=== PATIENT | female | born 1955 | race Caucasian/White ===

== ENCOUNTER 2020-04-22 20:03 | Emergency (ER) | payer MEDICARE, OTHER, SELFPAY ==
[2020-04-22 20:10] VITALS: BP 160/94; PULSE 89; RESP 18; TEMP 38.7; O2SAT 98; BMI 20.5
--- NOTE | 2020-04-22 20:30 | XRR_ITS ---
PROCEDURE INFORMATION: Exam: XR Chest, 1 View Exam date and time: 04/22/2020 9:21 PM Age: 65 years old Clinical indication: Fever; Prior surgery; Surgery type: Breast TECHNIQUE: Imaging protocol: XR of the chest Views: 1 view. COMPARISON: No relevant prior studies available. FINDINGS: Lungs: Unremarkable. No consolidation. Pleural space: Unremarkable. No pleural effusion. No pneumothorax. Heart/Mediastinum: Unremarkable. No cardiomegaly. Bones/joints: Lower thoracic curvature left concavity. Osteopenia. Soft tissues: Numerous surgical clips within the soft tissues over the chest bilaterally. XR/XR chest 1V portable [id number] IMPRESSION: No acute cardiopulmonary process.
--- NOTE | 2020-04-22 20:31 | W.ED.FEVER ---
HPI - Fever General: Chief Complaint: Fever Stated Complaint: fever/fatigue; back pain Time Seen by Provider: 04/22/20 20:21 Source: patient Mode of arrival: ambulatory Limitations: no limitations History of Present Illness: HPI Narrative: 65-year-old female who states she has had a fever over the last 2 days. States it is been up to 102. She states she was at an auction last week. She denies any cough. States she has had a headache but is from her TMJ and feels like her TMJ. She also has hip pain that is chronic in nature. Denies any dysuria. Denies any cough. Associated symptoms: Deny abdominal pain, chest pain, diarrhea, dysuria, headache(s), nausea or vomiting Review of Systems Const: Reports: fever(s) Eyes: Denies: blurry vision or eye discomfort ENMT: Denies: throat pain or dental pain Card: Denies: chest pain Resp: Denies: dyspnea GI: Denies: abdominal pain, nausea, vomiting or diarrhea : Denies: dysuria Musc: Denies: neck pain or back pain Skin/Breast: Denies: rash Neuro: Denies: headache(s) Psych: Denies: depression Srinivas/Lymph: Denies: easy bruising All/Imm: Denies: urticaria Physical Exam Const: COMMON NORMALS: no acute distress, patient oriented x3 and healthy appearing HENMT: COMMON NORMALS: normocephalic and atraumatic HEAD & SCALP: normocephalic and atraumatic Eye: COMMON NORMALS: Equal, round and reactive pupils present and EOMs intact bilaterally PUPIL: Yes Equal, round and reactive pupils present Neck/C-Spine: COMMON NORMALS: full ROM and supple Chest: COMMONS NORMALS: normal inspection of the chest and normal palpation of entire chest wall Resp: COMMON NORMALS: normal respiratory effort, No retractions, No use of accessory muscles and clear to auscultation bilaterally AUSCULTATION: clear to auscultation bilaterally Cardio: COMMON NORMALS: regular rate, regular rhythm and No murmurs present (Cardio) RATE: regular rate RHYTHM: regular rhythm GI: COMMON NORMALS: Normal to inspection, nondistended, normoactive bowel sounds present, Soft to palpation, non-tender and no masses PALPATION: Yes Soft to palpation Extremity: COMMON NORMALS: normal to inspection and full ROM Neuro: COMMON NORMALS: patient oriented x3, moves all extremities and no focal motor deficits Psych: COMMON NORMALS: mental status grossly normal, Normal thought process present and cooperative THOUGHT PROCESS: Normal thought process present Skin: COMMON NORMALS: no rashes or lesions noted and no wounds GENERAL SKIN EXAM: no rashes or lesions noted Course Vital Signs: Vital signs: Vital Signs Temperature 101.7 F H 04/22/20 20:10 Pulse Rate 87 04/22/20 22:38 Respiratory Rate 16 04/22/20 22:38 Blood Pressure 121/75 04/22/20 22:38 Pulse Oximetry 100 04/22/20 22:38 MDM - Fever MDM Narrative: Medical decision making narrative: Patient presents with fever. Patient also had a leukopenia. No cause noted here is x-ray and CT were normal. Patient does have sinus pain and will place on doxycycline she is unsure if she has had any tick bites. Patient also had coronavirus tested here and is to quarantine until results. I did offer her admission she states she feels fine and would like to go home. She is to follow-up with a primary care doctor in 3 to 5 days return to ER if worsening. She understands and agrees to plan. Lab Data: Labs: Lab Results 04/22/20 04/22/20 04/22/20 Range/Units 21:02 21:02 21:02 WBC 1.8 L (4.0-10.0) 10^3/ uL RBC 4.37 (4.1-5.3) 10^6/u L Hgb 13.3 (11.5-15.3) g/dL Hct 39.6 (37.0-47.0) % MCV 90.6 (81-99) fL MCH 30.4 (28.0-34.0) pg MCHC 33.6 (30.0-36.0) g/dL RDW 12.2 (12.1-15.1) % Plt Count 137 (130-400) 10^3/c mm MPV 9.2 (7.4-10.4) fL Neut % (Auto) 61.8 % Lymph % (Auto) 23.8 % [place] % (Auto) 13.3 % Eos % (Auto) 0.0 % Baso % (Auto) 1.1 % Neut # (Auto) 1.12 L (1.8-7.7) 10^3/u L Lymph # (Auto) 0.4 L (0.8-4.8) 10^3/u L [place] # (Auto) 0.2 (0.2-0.9) 10^3/u L Eos # (Auto) 0.0 (0.0-0.8) 10^3/u L Baso # (Auto) 0.0 (0.0-0.1) 10^3/u L Nucleated RBC % (a uto) 0 % Nucleated RBCs # 0.0 /100WBC Sodium 133 L (136-145) mmol/L Potassium 3.9 (3.5-5.1) mmol/L Chloride 99 (98-107) mmol/L Carbon Dioxide 24 (22-29) mmol/L Anion Gap 13.9 (5-19) BUN 14 (8-23) mg/dL Creatinine 0.6 (0.5-0.9) mg/dL GFR Calculation 99.7 (90-130) mL/min Glucose 122 H (65-115) mg/dL Calculated Osmolal ity 274 L (285-295) mOsm/k g Lactate 1.1 (0.5-2.2) mmol/L Calcium 8.3 L (8.5-10.5) mg/dL Total Bilirubin 0.9 (0.15-1.2) mg/dL AST 51 H (0-32) U/L ALT 55 H (0-33) U/L Alkaline Phosphata se 99 (35-105) IU/L Total Protein 6.7 (6.6-8.7) g/dL Albumin 3.8 (3.5-5.2) g/dL Globulin 2.9 (1.3-4.6) g/dL Urine Color (Yellow) Urine Appearance (CLEAR) Urine pH (5-7) Ur Specific Gravit y (1.005-1.030) Urine Protein (Negative) Urine Glucose (UA) (Normal) Urine Ketones (Negative) Urine Blood (Negative) Urine Nitrate (Negative) Urine Bilirubin (NEGATIVE) Urine Urobilinogen (Negative) mg/dL Ur Leukocyte Mary a[place] (Negative) Urine RBC (0-2) /hpf Urine WBC (0-5) /hpf Ur Squamous Epith Cells (0-5) Amorphous Sediment Urine Bacteria (NONE) Urine Mucus 04/22/20 Range/Units 21:43 WBC (4.0-10.0) 10^3/ uL RBC (4.1-5.3) 10^6/u L Hgb (11.5-15.3) g/dL Hct (37.0-47.0) % MCV (81-99) fL MCH (28.0-34.0) pg MCHC (30.0-36.0) g/dL RDW (12.1-15.1) % Plt Count (130-400) 10^3/c mm MPV (7.4-10.4) fL Neut % (Auto) % Lymph % (Auto) % [place] % (Auto) % Eos % (Auto) % Baso % (Auto) % Neut # (Auto) (1.8-7.7) 10^3/u L Lymph # (Auto) (0.8-4.8) 10^3/u L [place] # (Auto) (0.2-0.9) 10^3/u L Eos # (Auto) (0.0-0.8) 10^3/u L Baso # (Auto) (0.0-0.1) 10^3/u L Nucleated RBC % (a uto) % Nucleated RBCs # /100WBC Sodium (136-145) mmol/L Potassium (3.5-5.1) mmol/L Chloride (98-107) mmol/L Carbon Dioxide (22-29) mmol/L Anion Gap (5-19) BUN (8-23) mg/dL Creatinine (0.5-0.9) mg/dL GFR Calculation (90-130) mL/min Glucose (65-115) mg/dL Calculated Osmolal ity (285-295) mOsm/k g Lactate (0.5-2.2) mmol/L Calcium (8.5-10.5) mg/dL Total Bilirubin (0.15-1.2) mg/dL AST (0-32) U/L ALT (0-33) U/L Alkaline Phosphata se (35-105) IU/L Total Protein (6.6-8.7) g/dL Albumin (3.5-5.2) g/dL Globulin (1.3-4.6) g/dL Urine Color Yellow (Yellow) Urine Appearance Clear (CLEAR) Urine pH 5 (5-7) Ur Specific Gravit y 1.020 (1.005-1.030) Urine Protein Neg (Negative) Urine Glucose (UA) Norm (Normal) Urine Ketones Negative (Negative) Urine Blood 2+ H (Negative) Urine Nitrate Negative (Negative) Urine Bilirubin Neg (NEGATIVE) Urine Urobilinogen Norm (Negative) mg/dL Ur Leukocyte [place] Negative (Negative) Urine RBC 0-4 H (0-2) /hpf Urine WBC 0-4 H (0-5) /hpf Ur Squamous Epith Cells 0-4 H (0-5) Amorphous Sediment Not Reportable Urine Bacteria 1+ H (NONE) Urine Mucus 2+ Imaging Data^: CT Head: Attestation: I personally reviewed and interpreted this imaging study as follows: Radiologist's impression: [place] [address] CT Scan Report Signed Patient: Luis Torre Unit #: [id number] : 1955 Age/Sex: 65 / F ADM Date: 04/22/20 Loc: ER Room/Bed: Attending Dr: Ordering Provider/Ordering MD: Rex Ashley MD Date of Service: 04/22/20 Procedure(s): CT head wo con* [id number] Accession Number(s): [id number] Report Number: [id number] PROCEDURE INFORMATION: Exam: CT Head Without Contrast Exam date and time: 04/22/2020 9:22 PM Age: 65 years old Clinical indication: Pain; Headache; Additional info: MAC TECHNIQUE: Imaging protocol: Computed tomography of the head without contrast. Radiation optimization: All CT scans at this facility use at least one of these dose optimization techniques: automated exposure control; mA and/or kV adjustment per patient size (includes targeted exams where dose is matched to clinical indication); or iterative reconstruction. COMPARISON: No relevant prior studies available. RADIATION DOSE METRICS: Total DLP (mGy-cm): 786.71 FINDINGS: There is mild generalized atrophy. There is no evidence for acute infarct. There is no evidence for mass. There is no hemorrhage. There are no extra-axial fluid collections. There is no midline shift. There is a prominent fluid collection in the posterior fossa which may represent an arachnoid cyst versus a prominent cisterna magna. The skull is intact. The visualized paranasal sinuses are well aerated. CT/CT head wo con* [id number] IMPRESSION: No evidence for acute infarct, intra-axial mass or hemorrhage. CXR: My impression: no acute abnormality Discharge Plan Discharge Patient Disposition: Home, Self-Care Clinical Impression: Sinusitis Qualifiers: Sinusitis location: unspecified location Chronicity: acute Recurrence: non-recurrent Qualified Code(s): J01.90 - Acute sinusitis, unspecified Fever Qualifiers: Fever type: unspecified Qualified Code(s): R50.9 - Fever, unspecified Condition: Stable Prescriptions: New doxycycline hyclate 100 mg capsule 100 mg PO BID 10 Days Qty: 20 RF: 0 Discharge Orders: Discharge Order (Routine); Ordered 04/22/20 Ordered By: Rex Ashley Referrals: Hallie Fuentes APRN [Nurse Practitioner] - 1-3 days Jose Angel Reynoso MD [Physician] - 1-3 days Discharge Diet: Advance as tolerated Discharge Activity: Resume usual activity Patient Instructions: Fever in Adults (ED) Discharge Date/Time: 04/22/20 23:04 Coding Level of Care Code ED Vamp Throater for Clay Fwd Exam Comprehensive
[2020-04-22 21:03] VITALS: BP 159/90; PULSE 75; RESP 16; O2SAT 98
[2020-04-22 21:08] LABS: Basophils % 1.1 %; Hematocrit 39.6 % (37.0-47.0); Hemoglobin 13.3 g/dL (11.5-15.3); Lymphocytes # 0.4 10^3/uL (0.8-4.8); Lymphocytes % 23.8 %; Mean Corpuscular HGB Conc 33.6 g/dL (30.0-36.0); Mean Corpuscular Hemoglobin 30.4 pg (28.0-34.0); Mean Corpuscular Volume 90.6 fL (81-99); Mean Platelet Volume 9.2 fL (7.4-10.4); Monocytes # 0.2 10^3/uL (0.2-0.9); Monocytes % 13.3 %; Neutrophils # 1.12 10^3/uL (1.8-7.7); Neutrophils % 61.8 %; Nucleated Red Blood Cells % 0 %; Platelet Count 137 10^3/cmm (130-400); Red Blood Count 4.37 10^6/uL (4.1-5.3); Red Cell Distribution Width 12.2 % (12.1-15.1); White Blood Count 1.8 10^3/uL (4.0-10.0)
--- NOTE | 2020-04-22 21:10 | CTR_ITS ---
PROCEDURE INFORMATION: Exam: CT Head Without Contrast Exam date and time: 04/22/2020 9:22 PM Age: 65 years old Clinical indication: Pain; Headache; Additional info: MAC TECHNIQUE: Imaging protocol: Computed tomography of the head without contrast. Radiation optimization: All CT scans at this facility use at least one of these dose optimization techniques: automated exposure control; mA and/or kV adjustment per patient size (includes targeted exams where dose is matched to clinical indication); or iterative reconstruction. COMPARISON: No relevant prior studies available. RADIATION DOSE METRICS: Total DLP (mGy-cm): 786.71 FINDINGS: There is mild generalized atrophy. There is no evidence for acute infarct. There is no evidence for mass. There is no hemorrhage. There are no extra-axial fluid collections. There is no midline shift. There is a prominent fluid collection in the posterior fossa which may represent an arachnoid cyst versus a prominent cisterna magna. The skull is intact. The visualized paranasal sinuses are well aerated. CT/CT head wo con* [id number] IMPRESSION: No evidence for acute infarct, intra-axial mass or hemorrhage. Radiation Dose CTDIVOL = (mGy): DLP = 786.71 (mGy-cm)
[2020-04-22] MEDS: acetaminophen 500 mg Tablet 1000 MG PO (21:15)
[2020-04-22] MEDS: ketorolac 30 mg/mL INJ 15 MG IM (21:16)
[2020-04-22] MEDS: sodium chloride 0.9% 1,000 ML 999 ML IV (21:16)
[2020-04-22 21:22] LABS: Lactate (Lactic Acid level) 1.1 mmol/L (0.5-2.2)
[2020-04-22 21:23] LABS: Alanine Aminotransferase 55 U/L (0-33); Albumin Level 3.8 g/dL (3.5-5.2); Alkaline Phosphatase 99 IU/L (35-105); Anion Gap 13.9 (5-19); Aspartate Amino Transferase 51 U/L (0-32); Blood Urea Nitrogen 14 mg/dL (8-23); Calcium 8.3 mg/dL (8.5-10.5); Carbon Dioxide 24 mmol/L (22-29); Chloride 99 mmol/L (98-107); Globulin 2.9 g/dL (1.3-4.6); Glomerular Filtration Rate 99.7 mL/min (90-130); Glucose 122 mg/dL (65-115); Osmolality Calculated 274 mOsm/kg (285-295); Potassium 3.9 mmol/L (3.5-5.1); Sodium 133 mmol/L (136-145); Total Bilirubin 0.9 mg/dL (0.15-1.2); Total Protein 6.7 g/dL (6.6-8.7)
[2020-04-22 22:38] VITALS: BP 121/75; PULSE 87; RESP 16; O2SAT 100
[2020-04-22 22:43] LABS: Add Urine Microscopic? YES; Bilirubin Urine Neg (NEGATIVE); Blood Urine 2+ (Negative); Glucose Urine UA Norm (Normal); Ketones Urine Negative (Negative); Leukocyte Esterase Urine Negative (Negative); Nitrate Urine Negative (Negative); Protein Urine Neg (Negative); Urine Appearance Clear (CLEAR); Urine Color Yellow (Yellow); Urobilinogen Urine Norm (Negative); pH Urine 5 (5-7)
[2020-04-22 22:44] LABS: Bacteria Urine 1+; Mucus Urine 2+; RBC Urine 0-4 /hpf (0-2); Squamous Epithelial Cell Urine 0-4 (0-5); WBC Urine 0-4 /hpf (0-5)
[2020-04-22 22:45] LABS: Add Urine Culture? No
[2020-04-24 13:21] LABS: Lyme AB Screen <0.90 index
[2020-04-25 00:16] LABS: Quest SARS-CoV-2 RNA NOT DETECTED (NOT DETECTED)
--- NOTE | 2020-04-25 08:58 | PC.NURSE ---
0849- pt called and notified of negative COVID test
[2020-04-27 16:50] LABS: RMSF IGG NOT DETECTED; RMSF IGM NOT DETECTED
[2020-04-28 21:19] LABS: E. Chaffeensis AB IGG <1:64; E. Chaffeensis AB IGM <1:20
== END 2020-04-22 23:04 | disposition home or self-care (01) ==
PROVIDERS: Emergency Provider Emergency Medicine
DX: J01.90 Acute sinusitis, unspecified (principal)
CPT/HCPCS: 12345; 70450; 71045; 80053; 81001; 81003; 83605; 85025; 86618; 86666; 86757; 87040; 87635; 96360; 96372; 99282; 99284; J1885; J7030

== ENCOUNTER 2020-04-25 19:25 | Emergency (ER) | payer MEDICARE, OTHER, SELFPAY ==
[2020-04-25 20:16] VITALS: BP 177/91; PULSE 73; RESP 18; TEMP 37.1; O2SAT 99
--- NOTE | 2020-04-25 20:33 | W.ED.HA ---
HPI - Headache General: Chief Complaint: Headache Stated Complaint: chamorro from medication Time Seen by Provider: 04/25/20 20:24 History of Present Illness: HPI Narrative: Patient comes in complain about a severe headache. That she thinks is from doxycycline says she is feeling much better been on antibiotics and she felt the other day fevers been staying down but the headache is what is bothering her. Says she has little bit of rash around the tick bite that she had MD elicited complaint: headache Pertinent past history: other Onset (ago): hour(s) Onset description: gradually Location: diffuse Severity: moderate Quality & Timing: throbbing Exacerbating factors: none Relieving factors: nothing Context: tick bite Associated symptoms: Reports other (Recently treated for tickborne illness with doxycycline has had CT done in the labs COVID was negative); Deny chest pain, fever(s), nausea, rash or vomiting Treatments prior to arrival: acetaminophen Review of Systems Const: Denies: fever(s), chills or body aches Eyes: Denies: change in vision or blurry vision ENMT: Denies: throat pain or nasal congestion Card: Denies: chest pain or dyspnea on exertion Resp: Denies: dyspnea, productive cough or non-productive cough GI: Denies: abdominal pain, nausea or vomiting Musc: Denies: extremity pain Skin/Breast: Denies: rash Neuro: Reports: headache(s) Psych: Denies: anxiety or depression Srinivas/Lymph: Denies: easy bruising Physical Exam Const: COMMON NORMALS: no acute distress, average body habitus and patient oriented x3 HENMT: COMMON NORMALS: normocephalic HEAD & SCALP: normal to inspection and normocephalic FACE & SINUS: normal facial exam Eye: COMMON NORMALS: conjunctivae normal GENERAL EYE: appearance normal, both eyes and all related structures CONJUNCTIVA: Yes conjunctivae normal Neck/C-Spine: COMMON NORMALS: no JVD Chest: COMMONS NORMALS: normal inspection of the chest Resp: COMMON NORMALS: normal respiratory effort and clear to auscultation bilaterally AUSCULTATION: clear to auscultation bilaterally Cardio: COMMON NORMALS: no JVD, regular rate and regular rhythm RATE: regular rate RHYTHM: regular rhythm GI: COMMON NORMALS: Normal to inspection, nondistended, normoactive bowel sounds present Extremity: COMMON NORMALS: normal to inspection and full ROM Neuro: COMMON NORMALS: patient oriented x3 Course Vital Signs: Vital signs: Vital Signs Temperature 98.7 F 04/25/20 20:16 Pulse Rate 73 04/25/20 20:16 Respiratory Rate 18 04/25/20 20:16 Blood Pressure 177/91 04/25/20 20:16 Pulse Oximetry 99 04/25/20 20:16 Discharge Plan Discharge Prescriptions: No Action doxycycline hyclate 100 mg capsule 100 mg PO BID 10 Days Qty: 20 RF: 0 Coding Level of Care Code ED [employer] for Clay Fwnasra
[2020-04-25] MEDS: ketorolac 60 mg/2 mL INJ IM (20:36)
[2020-04-25 21:09] VITALS: BP 118/73; PULSE 71; RESP 14; O2SAT 97
== END 2020-04-25 21:09 | disposition home or self-care (01) ==
PROVIDERS: Emergency Provider Nurse Practitioner Family
DX: R51 Headache (principal)
CPT/HCPCS: 12345; 96372; 99281; 99282; J1885

== ENCOUNTER 2020-05-25 07:46 | Day surgery (SDC) | payer MEDICARE, OTHER, SELFPAY ==
[2020-05-22 07:38] VITALS: BMI 21.9
[2020-05-25 08:02] VITALS: BP 142/94; PULSE 73; RESP 18; TEMP 36.3; O2SAT 100
[2020-05-25] MEDS: sodium chloride 0.9% 1,000 ML 30 ML IV (08:16)
--- NOTE | 2020-05-25 08:56 | ANES.PREANE2 ---
Pre-Anesthetic Assessment Pre-Anesthetic Assessment: Height/Weight: Height 1.73 m Weight 65.317 kg Temp Pulse Resp BP Pulse Ox 97.3 F L 73 18 142/94 100 05/25/20 08:02 05/25/20 08:02 05/25/20 08:02 05/25/20 08:02 05/25/20 08:02 Preop Diagnosis: screen Proposed Procedure: Operation Date: 05/25/20 09:00 Proposed Procedures p Colonoscopy [id number] Z12.11(Not Applicable) - Jose Angel Reynoso MD Was Beta Kenrick taken within 24 hours: N/A Last intake: Intake Last Liquid Date 05/24/20 Last Liquid Time 20:00 Last Intake: 21:00 Social: Social History: No alcohol and No tobacco Exam: Pre-Anes Outpt Exam: alert, oriented x 3, clear to auscultation bilaterally and regular rate & rhythm Airway: Dentition: Full Pulmonary: Pulmonary: None reported CV/HEM: CV/HEM: DVT (30yrs ago) : : None reported Hepatic: Hepatic: None reported GI: GI: None reported Metabolic: Metabolic: None reported Musc/skel: Musc/skel: Lower Back Pain and Scoliosis Neuropsych: Neuropsych: None reported Anesthetic Plan: ASA status: 2 Anesthesia: MAC Meds/Allergies Current Medications: Current Medications Generic Name Dose Route Start Last Admin Trade Name Freq PRN Reason Stop Dose Admin Sodium Chloride 1,000 mls @ 30 ml s/hr 05/25/20 08:00 05/25/20 08:16 Sodium Chloride 0.9% IV 30 mls/hr .Q24H PEDRO Administration PFSH Anesthesia PFSH: Social History Smoking and tobacco status: never smoked Alcohol intake: current Alcohol intake frequency: holidays/special occasions only History of recent travel: No Data Anesthesia Cardiac Studies: No Data to Display
--- NOTE | 2020-05-25 09:18 | W.PM.OPSUD ---
Surgery/Procedure H&P Update DATE OF PROCEDURE: May 25, 2020 DATE H&P PERFORMED: 05/22/20 PREOP DIAGNOSIS: screen PLANNED PROCEDURE: Operation Date: 05/25/20 09:00 Proposed Procedures p Colonoscopy 18314 Z12.11(Not Applicable) - Jose Angel Reynoso MD
[2020-05-25 09:41] VITALS: BP 144/82; PULSE 69; RESP 18; TEMP 36.8; O2SAT 100
--- NOTE | 2020-05-25 09:50 | ANE.PACU2 ---
Inpatient post-anesthesia follow up: Airway intact: Yes Vital signs: Temperature 98.2 F Pulse Rate 69 Respiratory Rate 18 Blood Pressure 144/82 Pulse Oximetry 100 Oxygen Delivery Me thod Nasal Cannula Oxygen Flow Rate 3 Fraction of Inspir ed Oxygen Hydration adequate: Yes Nausea and vomiting: No Pain level: 1 Mental status: Baseline
[2020-05-25 09:53] VITALS: BP 108/72; PULSE 67; RESP 18; O2SAT 100
== END 2020-05-25 10:03 | disposition home or self-care (01) ==
PROVIDERS: PCP Internal Medicine; Visit Provider Internal Medicine
PROC: 0DJD8ZZ Inspection of Lower Intestinal Tract, Via Natural or Artificial Opening Endoscopic (ICD-10-PCS; CPT 45378; principal; 2020-05-25 09:00)
DX: Z12.11 Encounter for screening for malignant neoplasm of colon (principal)
CPT/HCPCS: 12345; 45378; G0121; J2704; J7030

== ENCOUNTER → 2021-02-04 15:23 | Outpatient (BNVA) | payer MEDICARE, OTHER, SELFPAY | PROVIDERS: PCP Internal Medicine; Visit Provider Nurse Practitioner Family | DX: N30.01 Acute cystitis with hematuria (principal); R35.0 Frequency of micturition | CPT/HCPCS: 81000 ==

== ENCOUNTER 2021-02-15 21:38 | Emergency (ER) | payer MEDICARE, OTHER, SELFPAY ==
[2021-02-15 21:41] VITALS: BP 159/99; PULSE 74; RESP 16; TEMP 36.5; O2SAT 99; BMI 20.9
--- NOTE | 2021-02-15 22:50 | ED_ITS ---
HPI - General Adult General: Chief complaint: General Medical Stated complaint: tick fever Time Seen by Provider: 02/15/21 22:36 Source: patient Mode of arrival: ambulatory Limitations: no limitations History of Present Illness: HPI narrative: Patient is a nice 66-year-old female who presents to ED today along with her for concerns of a rash following a tick bite to her right posterior knee. Patient states she pulled a tick off of that area a few days ago and then yesterday began noticing a rash. The rash is not painful. Patient tells me she is concerned because she has been diagnosed with tick illness previously and states she was very very ill at the time and does not want this to progress to that again. She states the rash she has currently is similar to when she was diagnosed previously. She currently does not complain of body aches, fevers, headache. Onset (ago): day(s) (yesterday) Location: lower extremity Relieving factors: none Exacerbating factors: none Associated symptoms: Reports no associated symptoms and rash; Deny chest pain, dyspnea, malaise, nausea or vomiting Treatments prior to arrival: none Review of Systems Const: Denies: fever(s), chills, body aches, change in appetite, change in weight, fatigue, malaise or night sweats Card: Denies: chest pain Resp: Denies: dyspnea GI: Denies: nausea or vomiting Musc: Denies: neck pain, back pain, joint pain or joint stiffness Skin/Breast: Reports: rash Neuro: Denies: numbness in extremities, weakness in extremities or sensory changes [facility] ED PFSH: Social History Smoking and tobacco status: never smoked Alcohol intake: current Alcohol intake frequency: holidays/special occasions o nly History of recent travel: No Physical Exam Const: COMMON NORMALS: no acute distress, average body habitus, patient oriented x3, no limitations, healthy appearing, alert and well nourished GENERAL APPEARANCE: cooperative ORIENTATION/CONSCIOUSNESS: Yes awake, Yes oriented to person, Yes oriented to place and Yes oriented to time Resp: COMMON NORMALS: normal respiratory effort Extremity: COMMON NORMALS: normal to inspection and full ROM GENERAL: Yes normal exam except as noted Neuro: COMMON NORMALS: patient oriented x3 SENSORIUM/ORIENTATION: Yes alert, Yes oriented to person, Yes oriented to place and Yes oriented to time Skin: NARRATIVE SKIN EXAM: pt has a few erythematous scaly like lesions to R posterior knee; small bite like lesion present also where pt states she pulled tick off; she has no classic erythema migrans lesion; no scaly formations to other flexural/extensor creases Course Vital Signs: Vital signs: Vital Signs Temperature 97.7 F 02/15/21 21:41 Pulse Rate 74 02/15/21 21:41 Respiratory Rate 16 02/15/21 21:41 Blood Pressure 159/99 02/15/21 21:41 Pulse Oximetry 99 02/15/21 21:41 MDM - General Adult MDM Narrative: Medical decision making narrative: Will run tick panel and place on doxycycline as patient is very worried she could become very ill again. I think diagnosis of actual tick illness at this time is low. She states she will follow up with PCP, Dr. Reynoso next week. Discharge Plan Discharge Patient Disposition: Home Clinical Impression: Tick bite Qualifiers: Encounter type: initial encounter Qualified Code(s): W57.XXXA - Bitten or stung by nonvenomous insect and other nonvenomous arthropods, initial encounter Condition: Stable Prescriptions: New doxycycline monohydrate 100 mg capsule 100 mg PO Q12H 10 Days Qty: 20 RF: 0 No Action sucralfate 1 gram tablet 1 gm PO BID RF: 0 phenazopyridine [Pyridium] 100 mg tablet 100 mg PO TID PRN (Reason: pain) Qty: 18 RF: 0 nortriptyline 10 mg capsule 10 mg PO DAILY Qty: 30 RF: 3 ciprofloxacin HCl [Cipro] 250 mg tablet 250 mg PO BID 3 Days Qty: 6 RF: 0 Discharge Orders: Discharge ED (Routine); Ordered 02/15/21 Ordered By: Jaimee Gomez Referrals: Jose Angel Reynoso MD [Primary Care Provider] - Patient Instructions: Tick Bite (ED) Coding Level of Care Code ED Sales Superintendent for Clay Hyatt
[2021-02-16] VITALS: PULSE 76; RESP 18; O2SAT 99
[2021-02-18 13:41] LABS: Lyme AB Screen <0.90 index
[2021-02-20 17:27] LABS: E. Chaffeensis AB IGM <1:20; Interpretation PAST INFECTION; RMSF IGG NOT DETECTED; RMSF IGM NOT DETECTED
== END 2021-02-16 | disposition home or self-care (01) ==
PROVIDERS: Emergency Provider Physician Assistant; PCP Internal Medicine
DX: S80.261A Insect bite (nonvenomous), right knee, initial encounter (principal); W57.XXXA Bitten or stung by nonvenomous insect and other nonvenomous arthropods, initial encounter
CPT/HCPCS: 86618; 86666; 86757; 99282

== ENCOUNTER → 2021-08-12 16:23 | Outpatient (BNVA) | payer MEDICARE, OTHER, SELFPAY | PROVIDERS: PCP Internal Medicine; Visit Provider Nurse Practitioner Family | DX: N39.0 Urinary tract infection, site not specified (principal) | CPT/HCPCS: 81003; 87086; 87102; 87206 ==

== ENCOUNTER → 2021-11-19 13:38 | Outpatient (BNVA) | payer MEDICARE, OTHER, SELFPAY | PROVIDERS: PCP Internal Medicine; Visit Provider Urology | DX: N39.0 Urinary tract infection, site not specified (principal) | CPT/HCPCS: 81003 ==

== ENCOUNTER → 2022-11-24 14:04 | Outpatient (BNVA) | payer MEDICARE, OTHER, SELFPAY | PROVIDERS: PCP Internal Medicine; Visit Provider Urology | DX: N39.0 Urinary tract infection, site not specified (principal) | CPT/HCPCS: 99213 ==

== ENCOUNTER → 2025-09-18 11:30 | Outpatient (BNVA) | payer MEDICARE, OTHER, SELFPAY | PROVIDERS: PCP Internal Medicine; Visit Provider Family Medicine | DX: E55.9 Vitamin D deficiency, unspecified (principal); N39.0 Urinary tract infection, site not specified; I10 Essential (primary) hypertension; E78.2 Mixed hyperlipidemia; R30.0 Dysuria; R79.89 Other specified abnormal findings of blood chemistry | CPT/HCPCS: 80053; 80061; 81000; 82306; 82607; 83735; 84443; 85025 ==